=== PATIENT | female | born 1965 | race Asian ===

== ENCOUNTER 2021-03-04 20:23 | Emergency (ER) | payer OTHER, MEDICAID, SELFPAY ==
[~2021-03-04] VITALS: Ht 152.4 cm; Wt 61.2 kg
[2021-03-04 20:23] VITALS: BP_SYST 129
--- NOTE | 2021-03-04 20:23 | NUR ---
Pt YONNY BLS placed to [facility], remains on ambulance gurney awaiting bed placement. Pt from [facility] r/t increase in aggressive behavior and medical clearance to be transferred to [facility]. Pt AAOx3, talking to self, yelling out.
--- NOTE | 2021-03-04 20:40 | NUR ---
Dr. Langston assessing pt.
--- NOTE | 2021-03-04 21:03 | NUR ---
COVID AND MRSA SWAB PERFORMED ON [facility] AND SET TO LAB
[2021-03-04 21:39] LABS: BILIRUBIN,URINE NEGATIVE (NEGATIVE); BLOOD, URINE NEGATIVE (NEGATIVE); CLARITY/URINE CLEAR (CLEAR); COLOR,URINE YELLOW (YELLOW); GLUCOSE,URINE NEGATIVE (NEGATIVE); KETONES,URINE NEGATIVE (NEGATIVE); LEUKOCYTE ESTERASE ,URINE NEGATIVE (NEGATIVE); NITRITE, URINE NEGATIVE (NEGATIVE); PH,URINE 5.5 (5.0-8.0); PROTEIN URINE NEGATIVE (NEGATIVE); UROBILINOGEN,URINE 0.2 (0.2-1.0)
[2021-03-04 21:45] LABS: BASOPHILS # (AUTO) 0.1 K/uL (0.0-0.2); BASOPHILS % (AUTO) 1.1 % (0.0-2.0); EOSINOPHILS # (AUTO) 0.1 K/uL (0.0-0.4); EOSINOPHILS % (AUTO) 1.3 % (0.0-4.0); HEMATOCRIT 37.3 % (36-48); HEMOGLOBIN 12.6 g/dL (12.0-16.0); LYMPHOCYTES % (AUTO) 39.3 % (20.5-51.5); MEAN CORPUSCULAR HEMOGLOBIN 30 pg (27-31); MEAN CORPUSCULAR HGB CONC 34 % (32-36); MEAN CORPUSCULAR VOLUME 89 fL (79.0-98.0); MONOCYTES # (AUTO) 0.3 K/uL (0.0-1.0); MONOCYTES % (AUTO) 6.2 % (1.7-9.3); NEUTROPHILS # (AUTO) 2.6 K/uL (1.8-7.7); NEUTROPHILS % (AUTO) 52.1 % (40.0-70.0); PLATELET COUNT (AUTO) 209 K/uL (130-430); RED CELL DISTRIBUTION WIDTH 14.8 % (9.0-15.0)
[2021-03-04 21:57] LABS: ANION GAP 7 (5-15); CALCIUM 9.3 mg/dL (8.4-11.0); CHLORIDE 101 mmol/L (98-107); CREATININE 0.84 mg/dL (0.55-1.30); GLUCOSE 103 mg/dL (70-99); POTASSIUM 4.3 mmol/L (3.5-5.1); SODIUM SERUM 137 mmol/L (136-145); UREA NITROGEN, BLOOD 9 mg/dL (8-21)
[2021-03-04 22:04] LABS: BARBITURATE, URINE NEGATIVE (NEG <=200); BENZODIAZEPINE, URINE POSITIVE (NEG <=150); CANNABINOID, URINE NEGATIVE (NEG <=50); COCAINE, URINE NEGATIVE (NEG <=150); METHAMPHETAMINES SCREEN,URINE NEGATIVE (NEG <=500); OPIATE, URINE NEGATIVE (NEG <=100); PHENCYCLIDINE SCREEN,URINE NEGATIVE (NEG <=25); UR TRICYCLIC ANTIDEPRESSANTS POSITIVE (NEG <=300); URINE AMPHETAMINE NEGATIVE (NEG <=500); URINE METHADONE NEGATIVE (NEG <=200); URINE OXYCODONE SCREEN NEGATIVE (NEG <=100); URINE PROPOXYPHENE SCREEN NEGATIVE (NEG <=300)
[2021-03-04 22:12] LABS: ALANINE AMINOTRANSFERASE 12 U/L (12-78); ALBUMIN 3.7 g/dL (3.4-4.8); ASPARTATE AMINOTRANSFERASE 6 U/L (10-37); TOTAL BILIRUBIN 0.3 mg/dL (0.0-1.0)
[2021-03-04 22:21] LABS: ACETAMINOPHEN < 1 ug/mL (1-30); ALCOHOL, BLOOD < 3 mg/dL (<10); GFR AFRICAN AMERICAN 91 mL/min (>90)
[2021-03-04 22:25] LABS: CHOLESTEROL 190 mg/dL (<200); HDL CHOLESTEROL 85 mg/dL (>55); LDL CHOLESTEROL 82 mg/dL (<100); TRIGLYCERIDES 78 mg/dL (30-150)
--- NOTE | 2021-03-04 22:30 | NUR ---
Pt placed to ER bed 04. Pt with calm demeanor at this time.
--- NOTE | 2021-03-04 23:40 | NUR ---
Dr. Ag assessing pt.
--- NOTE | 2021-03-04 23:41 | NUR ---
Pt shouting out obscenities and arguing with staff. Dr. Ag aware and pt to be medicated.
[2021-03-04] MEDS ORDERED: OLANZapine IntraMuscular 10 MG VIAL (FOR I.M. INJECTION ONLY) IM ONE (23:45)
--- NOTE | 2021-03-04 23:45 | NUR ---
Pt pacing about in room continuing to yell and scream.
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
[2021-03-04] MEDS ORDERED: LORazepam 2 MG/ML VIAL ONE (23:57)
[2021-03-04] MEDS ORDERED: HALOPERIDOL LACTATE 5 MG/ML VIAL ONE (23:57)
[2021-03-05] MEDS ORDERED: LORazepam 2 MG/ML VIAL IM ONE
[2021-03-05] MEDS ORDERED: HALOPERIDOL LACTATE 5 MG/ML VIAL IM ONE
--- NOTE | 2021-03-05 00:30 | NUR ---
Pt resting quietly, NAD.
--- NOTE | 2021-03-05 01:20 | NUR ---
Pt continues to yell out at ER staff. Dr. Ag aware and pt to be medicated with Benadryl 50 mg IM.
[2021-03-05] MEDS ORDERED: DIPHENHYDRAMINE INJ 50 MG/ML VIAL IM ONE (01:30)
--- NOTE | 2021-03-05 03:10 | NUR ---
Pt resting quietly, even and non-labored respirations, NAD.
--- NOTE | 2021-03-05 05:00 | NUR ---
Pt approaches nurses station in [facility] requesting coffee. Pt instructed to return to room. Coffee provided. GEOVANY.
--- NOTE | 2021-03-05 07:10 | NUR ---
Pt sitting in bedside chair, calm and cooperative behavior. NAD. Report given to oncoming RN.
--- NOTE | 2021-03-05 07:32 | NUR ---
PT AWAKE, ALERT, PACING IN ROOM. DECLINED FLUIDS AT THIS TIME.
--- NOTE | 2021-03-05 09:30 | NUR ---
PT CONTINUES TO PACE THE HALLWAY AND HAVING AUDITORY HALLUCINATIONS,HOWEVER PT ABLLE TO BE REDIRECTED TO SELF AND ROOM. BENJAMÍN FOR TRAMSPORT TEAM.
[2021-03-05 10:29] VITALS: BP_SYST 133
--- NOTE | 2021-03-05 10:30 | NUR ---
Patient given written and verbal discharge instructions and verbalizes understanding. ER MD discussed with patient the results and treatment provided. Patient in stable condition. ID arm band removed. Patient educated on pain management and to follow up with PMD. Pain Scale [0]. Opportunity for questions provided and answered. PT TRANSFERRED VIA AMBULANCE, ALL TRAMFER PAPERWORK SENT WITH TRANSPORT TEAM. PT STABLE FOR TRANSFER, VSS.
== END 2021-03-05 10:30 ==
LOC: SED 20:23
DX: F29 Unspecified psychosis not due to a substance or known physiological condition (principal); Z88.1 Allergy status to other antibiotic agents; Z91.038 Other insect allergy status; Z79.899 Other long term (current) drug therapy; Z20.822 Contact with and (suspected) exposure to COVID-19
CPT/HCPCS: 36415; 80053; 80061; 80307; 81003; 83036; 85025; 87081; 87426; 96372 ×2; 99285; G0480; J1200; J1630; J2060; G0481; G0482; J3490